=== PATIENT | female | born 1940 | race Caucasian/White ===

== ENCOUNTER 2018-08-29 14:00 | Emergency (ER) | payer OTHER ==
[~2018-08-29] VITALS: Ht 152.4 cm; Wt 54.4 kg
--- NOTE | 2018-08-29 14:08 | NUR ---
bib RA 99 from home near syncope, dizzy and nausea BP 78/50 no CP/SOB,given NS bolus improved , BS 151. FACE SLIGHTLY PALE IN COLOR. PT IS AOX4, AMB, VSS, RR EVEN AND UNLABORED ON RA. BP ON ADMISSION 142/66. SKIN INTACT. NO ACUTE DISTRESS NOTED. AT BEDSIDE. SEEN BY DR MOLINA. READY FOR ORDERS.
--- NOTE | 2018-08-29 14:17 | NUR ---
BLOOD COLLECTED AND SENT TO LAB
--- NOTE | 2018-08-29 14:20 | NUR ---
JEOVANY CONSTANTINO AT BEDSIDE FOR EKG
[2018-08-29 14:28] LABS: BASOPHILS % (AUTO) 0.5 % (0.0-2.0); EOSINOPHILS % (AUTO) 1.2 % (0.0-6.0); HEMATOCRIT 41 % (33-45); HEMOGLOBIN 13.6 g/dL (11.5-14.8); LYMPHOCYTES # (AUTO) 1.6 /CMM (0.8-4.8); LYMPHOCYTES % (AUTO) 28.3 % (20.0-44.0); MEAN CORPUSCULAR HGB CONC 33 g/dl (31.0-36.0); MEAN CORPUSCULAR VOLUME 93 fL (82-100); MONOCYTES # (AUTO) 0.5 /CMM (0.1-1.30); NEUTROPHILS # (AUTO) 3.6 /CMM (1.8-8.9); PLATELET COUNT (AUTO) 131 /CMM (150-450); RED BLOOD CELL COUNT(AUTO) 4.45 MIL/uL (4.0-5.2); WHITE BLOOD COUNT (AUTO) 5.7 K/uL (4.3-11.0)
[2018-08-29] MEDS ORDERED: IV NS 0.9% 500 ML BAG IV ONE (14:30)
[2018-08-29 14:46] LABS: CALCIUM, SERUM 8.9 mg/dL (8.5-10.1); CARBON DIOXIDE 27 mmol/L (21-32); CHLORIDE 108 mmol/L (98-107); CREATININE 1.2 mg/dL (0.6-1.3); GLUCOSE 176 mg/dL (74-106); POTASSIUM 4.3 mmol/L (3.5-5.1); SODIUM SERUM 142 mmol/L (136-145); UREA NITROGEN, BLOOD 25 mg/dL (7-18)
[2018-08-29 14:49] LABS: ALANINE AMINOTRANSFERASE 24 U/L (12-78); ALBUMIN 2.9 g/dL (3.4-5.0); ALKALINE PHOSPHATASE 33 U/L (46-116); ASPARTATE AMINOTRANSFERASE 22 U/L (15-37); BILIRUBIN,DIRECT 0.1 mg/dL (0.0-0.2); BILIRUBIN,TOTAL 0.5 mg/dL (0.2-1.0)
--- NOTE | 2018-08-29 15:30 | NUR ---
PT TAKEN TO CT VIA WC
--- NOTE | 2018-08-29 15:45 | NUR ---
PT BACK FROM CT. PELON WELL. HOOKED TO MONITOR AND MADE COMFORTABLE. WILL CONT TO MONITOR.
--- NOTE | 2018-08-29 16:27 | NUR ---
IV removed. Catheter intact and site benign. Pressure and 4x4 applied to site. No bleeding noted. Patient discharged to home in stable condition. Written and verbal after care instructions given. Patient verbalizes understanding of instruction.
[2018-08-29 16:32] VITALS: BP 127/72
== END 2018-08-29 16:36 | disposition home or self-care (01) ==
LOC: ER 14:02
DX: R55 Syncope and collapse (principal); I10 Essential (primary) hypertension; I12.9 Hypertensive chronic kidney disease with stage 1 through stage 4 chronic kidney disease, or unspecified chronic kidney disease; N18.9 Chronic kidney disease, unspecified; I48.91 Unspecified atrial fibrillation; Z86.73 Personal history of transient ischemic attack (TIA), and cerebral infarction without residual deficits; Z85.3 Personal history of malignant neoplasm of breast; Z85.118 Personal history of other malignant neoplasm of bronchus and lung; Z90.11 Acquired absence of right breast and nipple; Z90.710 Acquired absence of both cervix and uterus; Z98.890 Other specified postprocedural states
CPT/HCPCS: 36415; 70450-TC; 71045-TC; 80048-TC; 80076-TC; 84484-TC; 85025-TC; J7040

== ENCOUNTER 2019-06-20 20:29 | Emergency (ER) | payer OTHER ==
[~2019-06-20] VITALS: Ht 167.6 cm; Wt 52.6 kg
--- NOTE | 2019-06-20 20:52 | NUR ---
BLOOD DRAWN AND SENT TO LAB.
--- NOTE | 2019-06-20 20:56 | NUR ---
PT TO BED 13. BIB EMS FROM HOME C/O OF FEELING WEAK IN MORNING AND FELT LIKE PASSING OUT AFTER FEELING NAUSEOUS AND DIZZY. AAOX4. CURRENTLY DENIES VOMITING, AND DIARRHEA. SAYS SHE FEELS NAUSEOUS. NO SOB. BREATHING EVENLY AND UNLABORED ON ROOM AIR. CONNECTED TO MONITOR. Addendum: 06/20/19 at 2106 by JOHN Patient has taken chewable zofran during transport.
[2019-06-20 20:58] LABS: BASOPHILS # (AUTO) 0.1 /CMM (0.0-0.2); BASOPHILS % (AUTO) 0.5 % (0.0-2.0); EOSINOPHILS % (AUTO) 0.7 % (0.0-6.0); HEMATOCRIT 44 % (33-45); HEMOGLOBIN 14.5 g/dL (11.5-14.8); LYMPHOCYTES # (AUTO) 2.2 /CMM (0.8-4.8); LYMPHOCYTES % (AUTO) 17.2 % (20.0-44.0); MEAN CORPUSCULAR HGB CONC 33 g/dl (31.0-36.0); MEAN CORPUSCULAR VOLUME 94 fL (82-100); MONOCYTES % (AUTO) 7.8 % (2.0-12.0); NEUTROPHILS # (AUTO) 9.6 /CMM (1.8-8.9); NEUTROPHILS % (AUTO) 73.8 % (43.0-81.0); PLATELET COUNT (AUTO) 183 /CMM (150-450); RED BLOOD CELL COUNT(AUTO) 4.72 MIL/uL (4.0-5.2)
[2019-06-20] MEDS ORDERED: IV NS 0.9% 500 ML BAG IV ONE (21:00)
--- NOTE | 2019-06-20 21:05 | NUR ---
Patient currently denies pain in left arm and endorses pain on left leg 8/10. She states she has history of neuropathy. Denies having history of Diabetes.
[2019-06-20 21:10] LABS: ALANINE AMINOTRANSFERASE 21 U/L (12-78); ALBUMIN 3.5 g/dL (3.4-5.0); ALKALINE PHOSPHATASE 34 U/L (46-116); ASPARTATE AMINOTRANSFERASE 25 U/L (15-37); BILIRUBIN,DIRECT 0.1 mg/dL (0.0-0.2); BILIRUBIN,TOTAL 0.5 mg/dL (0.2-1.0); CARBON DIOXIDE 26 mmol/L (21-32); CHLORIDE 105 mmol/L (98-107); CREATININE 1.5 mg/dL (0.6-1.3); GLUCOSE 136 mg/dL (74-106); POTASSIUM 4.7 mmol/L (3.5-5.1); SODIUM SERUM 141 mmol/L (136-145); TOTAL PROTEIN, SERUM 6.8 g/dL (6.4-8.2); UREA NITROGEN, BLOOD 34 mg/dL (7-18)
--- NOTE | 2019-06-20 21:12 | NUR ---
xray at bedside
--- NOTE | 2019-06-20 21:29 | NUR ---
Racquel chand in ED - 06/20/19 at 2140 by JOHN PATIENT DENIES SUICIDAL INTENT OR PLAN TO HARM SELF OR OTHERS PER SUICIDE SEVERITY RATING.
[2019-06-20 22:42] VITALS: BP 116/69
--- NOTE | 2019-06-20 22:42 | NUR ---
IV removed. Catheter intact and site benign. Pressure and 4x4 applied to site. No bleeding noted. Patient discharged to home in stable condition. Written and verbal after care instructions given. Patient verbalizes understanding of instruction. Patient is ambulatory with a steady gait. Able to walk without a walker.
== END 2019-06-20 22:59 | disposition home or self-care (01) ==
LOC: ER 20:31
DX: R55 Syncope and collapse (principal); I12.9 Hypertensive chronic kidney disease with stage 1 through stage 4 chronic kidney disease, or unspecified chronic kidney disease; N18.9 Chronic kidney disease, unspecified; I48.91 Unspecified atrial fibrillation; Z86.73 Personal history of transient ischemic attack (TIA), and cerebral infarction without residual deficits; Z59.0 Homelessness; Z85.3 Personal history of malignant neoplasm of breast; Z85.118 Personal history of other malignant neoplasm of bronchus and lung; Z98.890 Other specified postprocedural states; Z88.0 Allergy status to penicillin
CPT/HCPCS: 36415; 71045; 80048; 80076; 84484; 85025; 93005; 96360; 99284; J7040

== ENCOUNTER 2023-09-21 11:06 | Emergency (ER) | payer OTHER ==
[~2023-09-21] VITALS: Ht 152.4 cm; Wt 57.2 kg
[2023-09-21] MEDS: IV NS 0.9% 500 ML BAG IV ONE (11:26)
[2023-09-21 11:49] LABS: BASOPHILS # (AUTO) 0.1 K/uL (0.0-0.2); BASOPHILS % (AUTO) 0.7 % (0.0-2.0); EOSINOPHILS # (AUTO) 0.1 K/uL (0.0-0.7); EOSINOPHILS % (AUTO) 0.9 % (0.0-6.0); HEMATOCRIT 44 % (33-45); HEMOGLOBIN 14.8 g/dL (11.5-14.8); LYMPHOCYTES # (AUTO) 2.1 K/uL (0.8-4.8); LYMPHOCYTES % (AUTO) 25.7 % (20.0-44.0); MEAN CORPUSCULAR HEMOGLOBIN 31 PG (26.0-33.0); MEAN CORPUSCULAR HGB CONC 33 g/dl (31.0-36.0); MEAN CORPUSCULAR VOLUME 93 fL (82-100); MONOCYTES # (AUTO) 0.7 K/uL (0.1-1.30); MONOCYTES % (AUTO) 8.3 % (2.0-12.0); NEUTROPHILS # (AUTO) 5.4 K/uL (1.8-8.9); NEUTROPHILS % (AUTO) 64.4 % (43.0-81.0); PLATELET COUNT (AUTO) 150 K/uL (150-450); RED BLOOD CELL COUNT(AUTO) 4.79 MIL/uL (4.0-5.2); WHITE BLOOD COUNT (AUTO) 8.4 K/uL (4.3-11.0)
[2023-09-21 11:59] LABS: INR 1.07 (0.91-1.10); PARTIAL THROMBOPLASTIN TIME 26.2 SEC (24.3-34.3); PROTHROMBIN TIME 11.3 SECS (9.2-11.1)
[2023-09-21 12:03] LABS: SERUM AMMONIA 13 umol/L (11-32)
[2023-09-21 12:06] LABS: CALCIUM, SERUM 8.6 mg/dL (8.5-10.1); CARBON DIOXIDE 28 mmol/L (21-32); CHLORIDE 105 mmol/L (98-107); CREATININE 0.7 mg/dL (0.6-1.3); GLUCOSE 101 mg/dL (74-106); POTASSIUM 3.2 mmol/L (3.5-5.1); SODIUM SERUM 142 mmol/L (136-145); UREA NITROGEN, BLOOD 12 mg/dL (7-18)
[2023-09-21 12:08] LABS: ALANINE AMINOTRANSFERASE 24 U/L (12-78); ALCOHOL, BLOOD 4 mg/dL (0-10); ALKALINE PHOSPHATASE 46 U/L (46-116); ASPARTATE AMINOTRANSFERASE 33 U/L (15-37); BILIRUBIN,DIRECT 0.2 mg/dL (0.0-0.2); TOTAL PROTEIN, SERUM 6.8 g/dL (6.4-8.2)
[2023-09-21 12:09] LABS: ACETAMINOPHEN 0 ug/ml (10-30); SALICYLATE < 0.2 mg/dL (2.8-20.0)
[2023-09-21 12:16] LABS: LACTIC ACID 2.7 mmol/L (0.4-2.0)
[2023-09-21 12:17] LABS: THYROID STIMULATING HORMONE 3.592 uIU/mL (0.358-3.74)
[2023-09-21] MEDS ORDERED: CIPROFLOXACIN IV RTU 200 ML IV ONE (12:44)
[2023-09-21] MEDS: CIPROFLOXACIN IV RTU 400 MG in PREMIX 1 EA IV SCH (12:57)
[2023-09-21 15:45] VITALS: TEMP 98.7
[2023-09-21 15:53] LABS: APPEARANCE,URINE Cloudy (CLEAR); BILIRUBIN,URINE Negative (NEGATIVE); BLOOD, URINE Small Ery/uL (NEGATIVE); COLOR,URINE YELLOW (YELLOW); KETONES,URINE Trace mg/dL (NEGATIVE); LEUKOCYTE ESTERASE ,URINE Large (NEGATIVE); NITRITE, URINE Positive (NEGATIVE); PROTEIN,URINE 100 mg/dl (NEGATIVE); UGLUCOSE Negative (NEGATIVE)
[2023-09-21 16:02] LABS: AMPHETAMINE, URINE NEGATIVE (NEGATIVE); BARBITURATE, URINE NEGATIVE (NEGATIVE); BENZODIAZEPINE, URINE NEGATIVE (NEGATIVE); CANNABINOID, URINE NEGATIVE (NEGATIVE); COCCAINE, URINE NEGATIVE (NEGATIVE); OPIATE, URINE NEGATIVE (NEGATIVE); PHENCYCLIDINE SCREEN,URINE NEGATIVE (NEGATIVE)
[2023-09-21 16:06] LABS: WBC,URINE TOO NUMEROUS TO COUN /HPF (0-3)
[2023-09-21 16:07] LABS: ADD URINE CULTURE YES; BACTERIA,URINE 2+ /HPF (None Seen); HYALINE CASTS, URINE Few /LPF (None Seen); MUCUS,URINE Moderate /LPF (None Seen)
[2023-09-21] MEDS: IV NS 0.9% 1,000 ML BAG IV ONE (17:44)
[2023-09-21 17:59] VITALS: BP 130/95; O2SAT 98
== END 2023-09-21 18:44 ==
LOC: ER 11:16
DX: G93.40 Encephalopathy, unspecified (principal); I12.9 Hypertensive chronic kidney disease with stage 1 through stage 4 chronic kidney disease, or unspecified chronic kidney disease; N18.9 Chronic kidney disease, unspecified; I48.91 Unspecified atrial fibrillation; Z88.0 Allergy status to penicillin; Z79.899 Other long term (current) drug therapy; Z20.822 Contact with and (suspected) exposure to COVID-19
CPT/HCPCS: 99285; 96365; 96361; 93005; 87804 ×2; 71045; 70450; 82140; 85025; 80048; 87040 ×2; 87086; 83605 ×3; 80076; 81001; 36415; 84443; 84484; 85730; 82962; 87426; 80143; 80320; 80307; J7030; J7040; A4216; J0744 ×2; A4223; G0480